=== PATIENT | male | born 1985 | race American Indian/Alaskan Native ===

== ENCOUNTER 2017-12-21 11:58 | Emergency (ER) | payer OTHER ==
[2017-12-21 12:04] VITALS: BMI 25.8
[2017-12-21 12:22] VITALS: RESP 18
--- NOTE | 2017-12-21 12:28 | ED PDOC ---
Arrival/HPI - General Chief Complaint: Abdominal Pain Time Seen by Provider: 12/21/17 12:12 Historian: Patient - History of Present Illness Narrative History of Present Illness (Text): Patient is a 32 year old male with a past medical history of asthma presenting to the emergency room with a complaint of severe abdominal pain. Patient states he has had a right inguinal hernia for approximately 4 months. This morning while lifting a wooden pallet, he felt a sharp abdominal pain and noticed a significant increase in the size of his hernia. He also noticed that his hernia now extended into his scrotum, which it never has before. He went to [facility] and was treated with Toradol and Zofran. No imaging occurred and patient was discharged home. On his way home, he felt worsening of his pain and decided to come to [facility]. He is having sharp right lower abdominal pain that radiates upwards at this time. He denies any nausea at this time, but was treated with Zofran less than 2 hours ago for nausea at [facility]. He has not vomited. He has been experiencing loose stools for the past few months. Has not had a bowel movement or flatus today. Denies fevers, chills, chest pain, shortness of breath. Time/Duration: 1-3 hours Symptom Onset: Sudden Symptom Course: Worsening Quality: Stabbing Past Medical History - Provider Review Nursing Documentation Reviewed: Yes - Infectious Disease Hx of Infectious Diseases: None - Cardiac Hx Cardiac Disorders: No - Pulmonary Hx Respiratory Disorders: Yes Hx Asthma: Yes - Neurological Hx Neurological Disorder: No - HEENT Hx HEENT Disorder: No - Renal Hx Renal Disorder: No - Endocrine/Metabolic Hx Endocrine Disorders: No - Hematological/Oncological Hx Blood Disorders: No - Integumentary Hx Dermatological Disorder: No - Musculoskeletal/Rheumatological Hx Musculoskeletal Disorders: No - Gastrointestinal Hx Gastrointestinal Disorders: No - Genitourinary/Gynecological Hx Genitourinary Disorders: No - Psychiatric Hx Psychophysiologic Disorder: No Hx Substance Use: No - Surgical History Hx Appendectomy: Yes - Suicidal Assessment Feels Threatened In Home Enviroment: No Family/Social History - Physician Review Nursing Documentation Reviewed: Yes Family/Social History: Unknown Family HX Smoking Status: Light Smoker < 10 Cigarettes Daily Hx Alcohol Use: No Hx Substance Use: No Hx Substance Use Treatment: No Allergies/Home Meds Allergies/Adverse Reactions: Allergies shellfish derived Allergy (Verified 12/21/17 12:04) RASH Review of Systems - Physician Review All systems were reviewed & negative as marked: Yes - Review of Systems Constitutional: Normal Respiratory: Normal. absent: SOB Cardiovascular: Normal. absent: Chest Pain, Palpitations Gastrointestinal: Abdominal Pain (RLQ), Diarrhea, Nausea, Other (R inguinal hernia). absent: Constipation, Vomiting Genitourinary Male: Normal. absent: Dysuria, Frequency, Hematuria, Urinary Output Changes Musculoskeletal: Normal Skin: Normal Neurological: Normal. absent: Headache, Dizziness Psychiatric: Normal Physical Exam Vital Signs Reviewed: Yes Vital Signs Temp Pulse Resp BP Pulse Ox 12/21/17 15:14 80 18 130/72 99 12/21/17 12:04 98.6 F 75 18 134/82 98 Temperature: Afebrile Blood Pressure: Normal Pulse: Regular Respiratory Rate: Normal Appearance: Positive for: Well-Appearing, Non-Toxic, Comfortable Pain Distress: None Mental Status: Positive for: Alert and Oriented X 3 - Systems Exam Head: Present: Atraumatic, Normocephalic Extroacular Muscles: Present: EOMI Conjunctiva: Present: Normal Mouth: Present: Moist Mucous Membranes Respiratory/Chest: Present: Clear to Auscultation, Good Air Exchange. No: Respiratory Distress, Accessory Muscle Use Cardiovascular: Present: Regular Rate and Rhythm, Normal S1, S2. No: Murmurs Abdomen: No: Tenderness, Distention, Peritoneal Signs Genitourinary Male: Present: Hernias (R inguinal hernia extending into scrotum. Very tender to palpation. Reduced only after use of ice. ). No: Penile Discharge, Testicle Tenderness, Penile Swelling, Testicle Swelling Back: Present: Normal Inspection Upper Extremity: Present: Normal Inspection, NORMAL PULSES. No: Cyanosis, Edema Lower Extremity: Present: Normal Inspection, NORMAL PULSES. No: Edema Neurological: Present: GCS=15, CN II-XII Intact, Speech Normal Skin: Present: Warm, Dry, Normal Color. No: Rashes Psychiatric: Present: Alert, Oriented x 3, Normal Insight, Normal Concentration Medical Decision Making ED Course and Treatment: 12/21/17 12:30 R inguinal hernia with herniation protruding into scrotum. Very tender to palpation. Difficult to reduce. Added ice pack and hernia reduced within 5 minutes. Labs, abd/pelvis CT Tylenol and flexeril for pain - patient refuses any use of narcotics due to previous drug use (cocaine) 12/21/17 13:00 Patient evaluated with surgical lead Dr. Francis. Recommended switching abd/pelvis CT to include IV and PO contrast. Changed order. 12/21/17 14:14 Labs normal. Patient's pain is much improved. He is tolerating oral contrast. 12/21/17 16:51 CT scan is negative. Discussed case with surgical lead Penny. Tolerating food and water. Will discharge home with instructions to follow up with Dr. Fierro for evaluation of hernia repair. Patient states that he understands and will call to follow up this week. - Lab Interpretations Lab Results: 12/21/17 12:30 12/21/17 12:30 Lab Results 12/21/17 13:45: Blood Type Confirm A POSITIVE 12/21/17 13:26: Blood Type A POSITIVE, Antibody Screen Negative, BBK History Checked No verified bt 12/21/17 12:30: Sodium 142, Potassium 4.0, Chloride 106, Carbon Dioxide 28, Anion Gap 12, BUN 16, Creatinine 1.0, Est GFR ( Amer) > 60, Est GFR (Non- Af Amer) > 60, Random Glucose 90, Calcium 8.7, Total Bilirubin 0.7, AST 22, ALT 27, Alkaline Phosphatase 66, Total Protein 6.9, Albumin 4.1, Globulin 2.8, Albumin/Globulin Ratio 1.4 12/21/17 12:30: PT 11.8, INR 1.03, APTT 26.2 12/21/17 12:30: WBC 8.1, RBC 4.74, Hgb 14.1, Hct 42.0, MCV 88.6, MCH 29.7, MCHC 33.6, RDW 12.7, Plt Count 201, MPV 11.1 H, Gran % 46.8 L, Lymph % (Auto) 43.4 H , [place] % (Auto) 6.7 H, Eos % (Auto) 2.4, Baso % (Auto) 0.7, Gran # 3.77, Lymph # (Auto) 3.5 H, [place] # (Auto) 0.5, Eos # (Auto) 0.2, Baso # (Auto) 0.06 I have reviewed the lab results: Yes - RAD Interpretation Narrative RAD Interpretations (Text): 12/21/17 16:18 Accession No. : [id number] Patient Name / ID : KEVEN HILLS / [id number] Exam Date : 12/21/2017 15:36:20 ( Approved ) Study Comment : Sex / Age : M / 32Y Creator : Jovana Burger MD Dictator : Jovana Burger MD Cotton Factor : Toll Operator : Jovana Burger MD Approver2 : Report Date : 12/21/2017 16:02:56 My Comment : Date of service: 12/21/2017 PROCEDURE: CT Abdomen and Pelvis with contrast HISTORY: R inguinal hernia COMPARISON: None. TECHNIQUE: CT scan of the abdomen and pelvis was performed after administration of intravenous contrast. Oral contrast was administered. Coronal and sagittal reformatted images were obtained. Contrast dose: 150 mL Visipaque 320 Radiation dose: Total exam DLP = 464.54 mGy-cm. This CT exam was performed using one or more of the following dose reduction techniques: Automated exposure control, adjustment of the mA and/or kV according to patient size, and/or use of iterative reconstruction technique. FINDINGS: LOWER THORAX: The visualized lungs are clear. LIVER: Mild hepatomegaly and diffuse fatty liver. No gross lesion or ductal dilatation. GALLBLADDER AND BILE DUCTS: The gallbladder is contracted. PANCREAS: Normal in size with homogeneous enhancement. No gross lesion or ductal dilatation. SPLEEN: Normal in size and appearance. ADRENALS: No discrete nodule. KIDNEYS AND URETERS: Normal in size with homogeneous enhancement. No hydronephrosis. No solid mass. VASCULATURE: No aortic aneurysm. BOWEL: The small bowel loops are normal in caliber. The colon is unremarkable. No bowel dilatation or wall thickening. APPENDIX: Surgically absent. PERITONEUM: No free fluid. No free air. LYMPH NODES: No enlarged lymph nodes. BLADDER: Well distended and normal in appearance. REPRODUCTIVE: Unremarkable. BONES: No acute fracture. OTHER FINDINGS: There is a small fat containing right inguinal hernia. IMPRESSION: No acute abdominal or pelvic abnormality. Small fat containing right inguinal hernia. Radiology Orders: 12/21/17 13:11 ABD PELVIS PO & IV CONTRAST [CT] Stat Rotary Cutter Operator: Radiologist - Medication Orders Current Medication Orders: Discontinued Medications Acetaminophen (Tylenol 325mg Tab) 650 mg PO STAT STA Stop: 12/21/17 12:42 Last Admin: 12/21/17 12:55 Dose: 650 mg MAR Pain/Vitals Document 12/21/17 12:55 HI (Rec: 12/21/17 12:57 HI [id number]) Pain Reassessment Is This A Pain ReAssessment? No Location Pain Location Body Site groin Re-Assess: MAR Pain/Vitals Document 12/21/17 13:55 HI (Rec: 12/21/17 14:00 HI [id number]) Pain Reassessment Is This A Pain ReAssessment? Yes Sleep Is patient sleeping during reassessment? No Presence of Pain Presence of Pain No Cyclobenzaprine HCl (Flexeril) 5 mg PO STAT STA Stop: 12/21/17 12:42 Last Admin: 12/21/17 12:55 Dose: 5 mg Disposition/Present on Arrival - Present on Arrival Any Indicators Present on Arrival: No History of DVT/PE: No History of Uncontrolled Diabetes: No Urinary Catheter: No History of Decub. Ulcer: No History Surgical Site Infection Following: None - Disposition Have Diagnosis and Disposition been Completed?: Yes Diagnosis: Right inguinal hernia Disposition: HOME/ ROUTINE Disposition Time: 16:55 Patient Plan: Discharge Patient Problems: Current Active Problems Problem Status Onset Right inguinal hernia Acute Condition: FAIR Discharge Instructions (ExitCare): Groin Hernia (DC) Additional Instructions: Patient is to be discharged home with instructions to follow up with Dr. Fierro, General Surgery, for evaluation of hernia repair. Patient given Acetaminophen and Flexeril for pain control. If patient experiences any new or worsening symptoms, please go directly to the nearest emergency department. Prescriptions: Acetaminophen [Non-Aspirin Pain Relief] 325 mg PO Q8H PRN #21 tablet PRN Reason: Pain, Moderate (4-7) Cyclobenzaprine [Flexeril] 5 mg PO Q8H PRN #21 tab PRN Reason: Pain, Moderate (4-7) Referrals: PCP,NO [Primary Care Provider] - Follow up with primary Andreas Fierro MD [Medical Doctor] - Follow up with primary Forms: [employer] (American), WORK NOTE
[2017-12-21 13:04] LABS: BASO # 0.06 K/mm3 (0.0-2.0); BASO % 0.7 % (0.0-3.0); EOS # 0.2 (0.0-0.7); EOS % 2.4 % (1.5-5.0); GRAN # 3.77 (1.4-6.5); GRAN % 46.8 % (50.0-68.0); HEMOGLOBIN 14.1 g/dL (14.0-18.0); LYMPH # 3.5 (1.2-3.4); LYMPH % 43.4 % (22.0-35.0); MEAN CELL VOLUME 88.6 fl (80.0-105.0); MEAN CORPUSCULAR HEMOGLOBIN 29.7 pg (25.0-35.0); MEAN CORPUSCULAR HGB CONC 33.6 g/dl (31.0-37.0); MEAN PLATELET VOLUME 11.1 fl (7.0-11.0); MONO # 0.5 (0.1-0.6); MONO % 6.7 % (1.0-6.0); RBC 4.74 10^6/uL (3.5-6.1); RED CELL DISTRIBUTION WIDTH 12.7 % (11.5-14.5); WHITE BLOOD COUNT 8.1 10^3/ul (4.5-11.0)
[2017-12-21 13:07] LABS: INR 1.03; PROTHROMBIN TIME 11.8 SECONDS (9.4-12.5)
[2017-12-21 13:10] LABS: PARTIAL THROMBOPLASTIN TIME 26.2 Seconds (25.1-36.5)
[2017-12-21 13:13] LABS: ALB/GLOB RATIO 1.4 (1.1-1.8); ALBUMIN 4.1 g/dL (3.0-4.8); ALT/SGPT 27 U/L (7-56); AST/SGOT 22 U/L (17-59); BLOOD UREA NITROGEN 16 mg/dL (7-21); CALCIUM 8.7 mg/dL (8.4-10.5); GFR AFRICAN-AMERICAN > 60; GFR NON-AFRICAN AMERICAN > 60
[2017-12-21] MEDS ORDERED: Iohexol 240 (50 ml) ONE (13:17)
--- NOTE | 2017-12-21 13:21 | CP.PCM.CON ---
History of Present Illness - History of Present Illness History of Present Illness: General Surgery Consult Note for Dr. Fierro Reason for Consult: R inguinal Hernia 32 M with PMH of asthma presents to [facility] for complaint of right inguinal hernia. Patient was seen and evaluated in the ED. Patient states that he has had this hernial since June. He reports gradual onset and states that it has been getting progressively worse. This morning, patient noticed that both pain and size increased. Patient left work and decided to be seen at [facility]. Patient was given pain medication and discharged for outpatient follow up. While patient was heading home from [facility] on the light rail, the pain had increased again. Patient immediately got off the light rail and came to [facility] ED. Patient states that initial event happened at work. Patient continued to work and exercise since June despite the presence of the hernia. Patient rate pain as severe. He describes it as constant and sharp located in groin/lower abdomen without radiation. Patient also admits to mild mid epigastric pain. He reports associated nausea. He states that he has had non-bloody diarrhea for last 1-2 months. Denies fever/chills, chest pain, palpiations, vomiting, hematochezia, melena, hematemesis, skin changes. Hernia was reduced by resident in ED. Patient has persistent pain despite reduction. 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 absent: Constipation, Fecal Incontinence, Heartburn, Hematemesis, Hematochezia, Vomiting - Genitourinary Genitourinary: absent: Change in Urinary Stream, Difficulty Urinating, Dysuria - Musculoskeletal Musculoskeletal: absent: Arthralgias, Numbness, Tingling - Integumentary Integumentary: absent: Rash, Wounds, Jaundice - Neurological Neurological: absent: Numbness, Syncope, Tingling, Vertigo, Weakness - Psychiatric Psychiatric: absent: Anxiety, Depression - Endocrine Endocrine: absent: Fatigue, Palpitations, Polydipsia, Polyphagia, Polyuria - Hematologic/Lymphatic Hematologic: absent: Easy Bleeding, Easy Bruising, Lymphadenopathy Past Patient History - Infectious Disease Hx of Infectious Diseases: None - Past Social History Smoking Status: Light Smoker < 10 Cigarettes Daily - CARDIAC Hx Cardiac Disorders: No - PULMONARY Hx Respiratory Disorders: Yes Hx Asthma: Yes - NEUROLOGICAL Hx Neurological Disorder: No - HEENT Hx HEENT Problems: No - RENAL Hx Chronic Kidney Disease: No - ENDOCRINE/METABOLIC Hx Endocrine Disorders: No - HEMATOLOGICAL/ONCOLOGICAL Hx Blood Disorders: No - INTEGUMENTARY Hx Dermatological Problems: No - MUSCULOSKELETAL/RHEUMATOLOGICAL Hx Musculoskeletal Disorders: No - GASTROINTESTINAL Hx Gastrointestinal Disorders: No - GENITOURINARY/GYNECOLOGICAL Hx Genitourinary Disorders: No - PSYCHIATRIC Hx Psychophysiologic Disorder: No Hx Substance Use: No - SURGICAL HISTORY Hx Appendectomy: Yes Meds Home Medications: Home Medication List Medication Instructions Recorded Confirmed Type Acetaminophen [Non-Aspirin Pain 325 mg PO Q8H PRN #21 tablet 12/21/17 Rx Relief] Cyclobenzaprine [Flexeril] 5 mg PO Q8H PRN #21 tab 12/21/17 Rx Allergies/Adverse Reactions: Allergies Allergy/AdvReac Type Severity Reaction Status Date / Time shellfish derived Allergy RASH Verified 12/21/17 12:04 Physical Exam - Constitutional Appears: Well, Non-toxic, No Acute Distress - Head Exam Head Exam: ATRAUMATIC, NORMOCEPHALIC - Eye Exam Eye Exam: EOMI, Normal appearance Pupil Exam: PERRL - ENT Exam ENT Exam: Mucous Membranes Moist - Respiratory Exam Respiratory Exam: NORMAL BREATHING PATTERN - Cardiovascular Exam Cardiovascular Exam: REGULAR RHYTHM - GI/Abdominal Exam GI & Abdominal Exam: Hernia (r inguinal hernia), Normal Bowel Sounds, Soft, Tenderness (r groin, suprapubic). absent: Distended, Guarding, Rebound Additional comments: Right inguinal hernia reduced in ED, patient has palpable defect in inguinal canal, TTP in right groin and suprapubic abdomen, small ecchymosis above inguinal canal on right - Extremities Exam Extremities exam: Positive for: normal capillary refill. Negative for: calf tenderness, pedal pulses present - Back Exam Back exam: absent: CVA tenderness (L), CVA tenderness (R) - Neurological Exam Neurological exam: Alert, CN II-XII Intact, Normal Gait, Oriented x3 - Psychiatric Exam Psychiatric exam: Normal Affect, Normal Mood - Skin Skin Exam: Dry, Intact, Warm Results - Vital Signs Recent Vital Signs: Last Vital Signs Temp 98.6 F 12/21/17 12:04 Pulse 75 12/21/17 12:04 Resp 18 12/21/17 12:04 BP 134/82 12/21/17 12:04 Pulse Ox 98 12/21/17 12:04 - Labs Result Diagrams: 12/21/17 12:30 12/21/17 12:30 Labs: Laboratory Results - last 24 hr 12/21/17 12/21/17 12/21/17 12:30 12:30 12:30 WBC 8.1 RBC 4.74 Hgb 14.1 Hct 42.0 MCV 88.6 MCH 29.7 MCHC 33.6 RDW 12.7 Plt Count 201 MPV 11.1 H Gran % 46.8 L Lymph % (Auto) 43.4 H [place] % (Auto) 6.7 H Eos % (Auto) 2.4 Baso % (Auto) 0.7 Gran # 3.77 Lymph # (Auto) 3.5 H [place] # (Auto) 0.5 Eos # (Auto) 0.2 Baso # (Auto) 0.06 PT 11.8 INR 1.03 APTT 26.2 Sodium 142 Potassium 4.0 Chloride 106 Carbon Dioxide 28 Anion Gap 12 BUN 16 Creatinine 1.0 Est GFR ( Amer) > 60 Est GFR (Non-Af Amer) > 60 Random Glucose 90 Calcium 8.7 Total Bilirubin 0.7 AST 22 ALT 27 Alkaline Phosphatase 66 Total Protein 6.9 Albumin 4.1 Globulin 2.8 Albumin/Globulin Ratio 1.4 Assessment & Plan - Assessment and Plan (Free Text) Assessment: 32 M presents with right inguinal hernia Plan: -CT Abd/Pelvis with PO & IV contrast unremarkable -Labs without abnormalities -Hernia reduced and pain improved -Patient may be discharged and follow up as outpatient for elective repair -Discussed with Dr. Irwin Francis PGY2 - Date & Time Date: 12/21/17 Time: 12:30
[2017-12-21 15:19] VITALS: O2SAT 99
[2017-12-21] MEDS ORDERED: Iodixanol 320 mg/ml 150 ml Bottle IV ONE (15:31)
--- NOTE | 2017-12-21 16:04 | CT ---
Date of service: 12/21/2017 PROCEDURE: CT Abdomen and Pelvis with contrast HISTORY: R inguinal hernia COMPARISON: None. TECHNIQUE: CT scan of the abdomen and pelvis was performed after administration of intravenous contrast. Oral contrast was administered. Coronal and sagittal reformatted images were obtained. Contrast dose: 150 mL Visipaque 320 Radiation dose: Total exam DLP = 464.54 mGy-cm. This CT exam was performed using one or more of the following dose reduction techniques: Automated exposure control, adjustment of the mA and/or kV according to patient size, and/or use of iterative reconstruction technique. FINDINGS: LOWER THORAX: The visualized lungs are clear. LIVER: Mild hepatomegaly and diffuse fatty liver. No gross lesion or ductal dilatation. GALLBLADDER AND BILE DUCTS: The gallbladder is contracted. PANCREAS: Normal in size with homogeneous enhancement. No gross lesion or ductal dilatation. SPLEEN: Normal in size and appearance. ADRENALS: No discrete nodule. KIDNEYS AND URETERS: Normal in size with homogeneous enhancement. No hydronephrosis. No solid mass. VASCULATURE: No aortic aneurysm. BOWEL: The small bowel loops are normal in caliber. The colon is unremarkable. No bowel dilatation or wall thickening. APPENDIX: Surgically absent. PERITONEUM: No free fluid. No free air. LYMPH NODES: No enlarged lymph nodes. BLADDER: Well distended and normal in appearance. REPRODUCTIVE: Unremarkable. BONES: No acute fracture. OTHER FINDINGS: There is a small fat containing right inguinal hernia. IMPRESSION: No acute abdominal or pelvic abnormality. Small fat containing right inguinal hernia.
[2017-12-21 18:43] VITALS: BP 132/86; PULSE 72; TEMP 98.5
== END 2017-12-21 17:00 | disposition home or self-care (01) ==
LOC: ED 11:58
DX: K40.90 Unilateral inguinal hernia, without obstruction or gangrene, not specified as recurrent (principal); F17.210 Nicotine dependence, cigarettes, uncomplicated
CPT/HCPCS: 74177; 80053; 85025; 85610; 85730; 86850; 86900; 99284; Q9966; Q9967

== ENCOUNTER 2017-12-22 11:54 | Day surgery (SDC) | payer OTHER ==
[2017-12-22 11:55] VITALS: BMI 25.8
--- NOTE | 2017-12-22 12:45 | ED PDOC ---
Arrival/HPI - General Chief Complaint: Groin Pain Time Seen by Provider: 12/22/17 12:01 Historian: Patient - History of Present Illness Narrative History of Present Illness (Text): 12/22/17 12:37 32 yr old male w/ hx of asthma, R inguinal hernia, previous cocaine use p/w R groin pain. 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 He notes baseball sized enlargement at that time, with pain radiating into his abdomen. Pt went to [facility] then to [facility] and was dx w/ incarcerated hernia and reduced. Pt was seen by Dr. King's resident and was d/c w/ followup and pain meds. Pt notes that today he went to pass a BM, and after standing up had R groin enlargement and pain, softball size, worse than yesterday. He notes pain feels exactly alike previous hernia pain. He denies any vomiting. He denies any nausea. He denies taking any pain meds for the pain. No dysuria, urgency or frequency. No recent sexual activity. No redness, to R groin. No fever. No other complaints. Time/Duration: 4-6 hours Symptom Onset: Gradual Symptom Course: Unchanged Quality: Aching Severity Level: 5 Activities at Onset: Rest Context: Sitting, Standing Past Medical History - Provider Review Nursing Documentation Reviewed: Yes - Patient History Narrative Patient History: Asthma, previous admission and intubation as a child. No current meds for asthma or admission in adulthood - Infectious Disease Hx of Infectious Diseases: None - Tetanus Immunization Tetanus Immunization: Unknown - Cardiac Hx Cardiac Disorders: No - Pulmonary Hx Respiratory Disorders: Yes Hx Asthma: Yes - Neurological Hx Neurological Disorder: No - HEENT Hx HEENT Disorder: No - Renal Hx Renal Disorder: No - Endocrine/Metabolic Hx Endocrine Disorders: No - Hematological/Oncological Hx Blood Disorders: No - Integumentary Hx Dermatological Disorder: No - Musculoskeletal/Rheumatological Hx Musculoskeletal Disorders: No - Gastrointestinal Hx Gastrointestinal Disorders: No - Genitourinary/Gynecological Hx Genitourinary Disorders: No - Psychiatric Hx Psychophysiologic Disorder: No Hx Substance Use: No - Past Surgical History Past Surgical History: No Previous - Surgical History Hx Appendectomy: Yes - Anesthesia Hx Anesthesia: Yes Hx Anesthesia Reactions: No Hx Malignant Hyperthermia: No - Suicidal Assessment Feels Threatened In Home Enviroment: No Family/Social History - Physician Review Nursing Documentation Reviewed: Yes Family/Social History: No Known Family HX Smoking Status: Current Some Days Smoker Hx Alcohol Use: No Hx Substance Use: Yes (cocaine, now clean) Hx Substance Use Treatment: No Allergies/Home Meds Allergies/Adverse Reactions: Allergies shellfish derived Allergy (Verified 12/22/17 12:26) RASH Home Medications: Home Meds Medication Instructions Recorded Confirmed No Known Home Med 12/22/17 12/22/17 Review of Systems - Review of Systems Constitutional: Normal Eyes: Normal ENT: Normal Respiratory: Normal Cardiovascular: Normal Gastrointestinal: Abdominal Pain (R groin pain) Genitourinary Male: Normal Musculoskeletal: Normal Skin: Normal Neurological: Normal Endocrine: Normal Hemo/Lymphatic: Normal Psychiatric: Normal Physical Exam Vital Signs Temp Pulse Resp BP Pulse Ox 12/22/17 12:16 99.1 F 78 18 134/85 98 Temperature: Afebrile Blood Pressure: Normal Pulse: Regular Respiratory Rate: Normal Appearance: Positive for: Well-Appearing, Non-Toxic, Comfortable Pain Distress: None Mental Status: Positive for: Alert and Oriented X 3 - Systems Exam Head: Present: Atraumatic, Normocephalic Pupils: Present: PERRL Extroacular Muscles: Present: EOMI Conjunctiva: Present: Normal Mouth: Present: Moist Mucous Membranes Neck: Present: Normal Range of Motion Respiratory/Chest: Present: Clear to Auscultation, Good Air Exchange. No: Respiratory Distress, Accessory Muscle Use Cardiovascular: Present: Regular Rate and Rhythm, Normal S1, S2. No: Murmurs Abdomen: No: Tenderness, Distention, Peritoneal Signs Genitourinary Male: Present: Testicle Swelling (R groin, Inguinal hernia, softball sized, compressible, non-strangulated. No discoloration or erythema. ) . No: Penile Swelling, Masses, Erythema, Hernias Back: Present: Normal Inspection Upper Extremity: Present: Normal Inspection. No: Cyanosis, Edema Lower Extremity: Present: Normal Inspection. No: Edema Neurological: Present: GCS=15, CN II-XII Intact, Speech Normal Skin: Present: Warm, Dry, Normal Color. No: Rashes Psychiatric: Present: Alert, Oriented x 3, Normal Insight, Normal Concentration Medical Decision Making ED Course and Treatment: 12/22/17 12:30 R inguinal hernia. Non-strangulated. Incarcerated. Larger than yesterday. Pt states he does not want any narcotics 2/2 previous cocaine usage. Will page fixed income trading vice president on for Dr. Kang. 12:59 Seen by Business Continuity Global Director on for Dr. Kang: He will contact Surgical attd. 1400 vice president medical affairs attempted reduction of hernia- will need to go to OR per resident. To admit to Dr. Talamantes. Admitted. 12/22/17 14:17 12/22/17 14:19 - Lab Interpretations Lab Results: 12/22/17 12:50 12/22/17 12:50 Lab Results 12/22/17 13:15: Blood Type Pending, Antibody Screen Pending, BBK History Checked Patient has bt 12/22/17 12:53: pO2 139 H, VBG pH 7.42, VBG pCO2 43.0, VBG HCO3 27.9, VBG Total CO2 29.2 H, VBG O2 Sat (Calc) 99.3 H, VBG Base Excess 2.9 H, VBG Potassium 4.2, Glucose 90, Lactate 1.4, FiO2 21.0, Sodium 141.0, Chloride 106.0, Venous Blood Potassium 4.2 12/22/17 12:50: Sodium 142, Potassium 4.3, Chloride 107, Carbon Dioxide 25, Anion Gap 14, BUN 15, Creatinine 1.0, Est GFR ( Amer) > 60, Est GFR (Non- Af Amer) > 60, Random Glucose 93, Calcium 9.0, Total Bilirubin 0.6, AST 29, ALT 28, Alkaline Phosphatase 70, Total Protein 7.9, Albumin 4.5, Globulin 3.4, Albumin/Globulin Ratio 1.3 12/22/17 12:50: PT 11.0, INR 0.97, APTT 26.2 12/22/17 12:50: WBC 7.7, RBC 4.96, Hgb 15.1, Hct 43.5, MCV 87.7, MCH 30.4, MCHC 34.7, RDW 12.7, Plt Count 212, MPV 10.9, Gran % 51.0, Lymph % (Auto) 39.3 H, [place] % (Auto) 5.5, Eos % (Auto) 3.4, Baso % (Auto) 0.8, Gran # 3.92, Lymph # ( Auto) 3.0, [place] # (Auto) 0.4, Eos # (Auto) 0.3, Baso # (Auto) 0.06 - Medication Orders Current Medication Orders: Discontinued Medications Acetaminophen (Tylenol 325mg Tab) 650 mg PO STAT STA Stop: 12/22/17 12:30 Last Admin: 12/22/17 12:40 Dose: 650 mg MAR Pain/Vitals Document 12/22/17 12:40 L[facility] (Rec: 12/22/17 12:41 LM [id number]) Pain Reassessment Is This A Pain ReAssessment? No Sleep Is patient sleeping during reassessment? No Presence of Pain Presence of Pain Yes Pain Scale Used Pain Scale Used Numeric Location Description Constant Intensity 6 Scale Used Numeric Cyclobenzaprine HCl (Flexeril) 5 mg PO STAT STA Stop: 12/22/17 12:30 Last Admin: 12/22/17 12:40 Dose: 5 mg Ibuprofen (Motrin Tab) 600 mg PO STAT STA Stop: 12/22/17 13:41 Last Admin: 12/22/17 13:53 Dose: 600 mg MAR Pain/Vitals Document 12/22/17 13:53 [facility] (Rec: 12/22/17 13:[id number]) Pain Reassessment Is This A Pain ReAssessment? Yes Sleep Is patient sleeping during reassessment? No Presence of Pain Presence of Pain Yes Pain Scale Used Pain Scale Used Numeric Location Intensity 6 Scale Used Numeric Disposition/Present on Arrival - Present on Arrival Any Indicators Present on Arrival: No History of DVT/PE: No History of Uncontrolled Diabetes: No Urinary Catheter: No History of Decub. Ulcer: No History Surgical Site Infection Following: None - Disposition Have Diagnosis and Disposition been Completed?: Yes Diagnosis: Right inguinal hernia Disposition: HOSPITALIZED Disposition Time: 14:20 Patient Problems: Current Active Problems Problem Status Onset Right inguinal hernia Acute Condition: GOOD Forms: [employer] (Pashto)
[2017-12-22 13:02] LABS: HEMOGLOBIN 15.1 g/dL (14.0-18.0); MEAN CELL VOLUME 87.7 fl (80.0-105.0); MEAN CORPUSCULAR HEMOGLOBIN 30.4 pg (25.0-35.0); RBC 4.96 10^6/uL (3.5-6.1); WHITE BLOOD COUNT 7.7 10^3/ul (4.5-11.0)
[2017-12-22 13:03] LABS: BASO # 0.06 K/mm3 (0.0-2.0); BASO % 0.8 % (0.0-3.0); EOS # 0.3 (0.0-0.7); EOS % 3.4 % (1.5-5.0); GRAN # 3.92 (1.4-6.5); LYMPH % 39.3 % (22.0-35.0); MEAN CORPUSCULAR HGB CONC 34.7 g/dl (31.0-37.0); MEAN PLATELET VOLUME 10.9 fl (7.0-11.0); MONO # 0.4 (0.1-0.6); MONO % 5.5 % (1.0-6.0); RED CELL DISTRIBUTION WIDTH 12.7 % (11.5-14.5)
[2017-12-22 13:19] LABS: VENOUS BLOOD GAS BASE EXCESS 2.9 mmol/L (0.0-2.0); VENOUS BLOOD GAS PO2 139 mm/Hg (30-55); VENOUS BLOOD PH 7.42 (7.32-7.43)
[2017-12-22 13:20] LABS: INR 0.97; PARTIAL THROMBOPLASTIN TIME 26.2 Seconds (25.1-36.5)
[2017-12-22 13:43] LABS: BLOOD UREA NITROGEN 15 mg/dL (7-21); GFR AFRICAN-AMERICAN > 60; GFR NON-AFRICAN AMERICAN > 60
[2017-12-22 13:44] LABS: ALB/GLOB RATIO 1.3 (1.1-1.8); ALBUMIN 4.5 g/dL (3.0-4.8); ALT/SGPT 28 U/L (7-56); AST/SGOT 29 U/L (17-59)
--- NOTE | 2017-12-22 14:16 | CP.PCM.CON ---
Past Patient History - Infectious Disease Hx of Infectious Diseases: None - Tetanus Immunizations Tetanus Immunization: Unknown - Past Social History Smoking Status: Current Some Days Smoker - CARDIAC Hx Cardiac Disorders: No - PULMONARY Hx Respiratory Disorders: Yes Hx Asthma: Yes - NEUROLOGICAL Hx Neurological Disorder: No - HEENT Hx HEENT Problems: No - RENAL Hx Chronic Kidney Disease: No - ENDOCRINE/METABOLIC Hx Endocrine Disorders: No - HEMATOLOGICAL/ONCOLOGICAL Hx Blood Disorders: No - INTEGUMENTARY Hx Dermatological Problems: No - MUSCULOSKELETAL/RHEUMATOLOGICAL Hx Musculoskeletal Disorders: No - GASTROINTESTINAL Hx Gastrointestinal Disorders: No - GENITOURINARY/GYNECOLOGICAL Hx Genitourinary Disorders: No - PSYCHIATRIC Hx Psychophysiologic Disorder: No Hx Substance Use: Yes (cocaine, now clean) - SURGICAL HISTORY Hx Appendectomy: Yes - ANESTHESIA Hx Anesthesia: Yes Hx Anesthesia Reactions: No Hx Malignant Hyperthermia: No Meds Allergies/Adverse Reactions: Allergies Allergy/AdvReac Type Severity Reaction Status Date / Time shellfish derived Allergy RASH Verified 12/22/17 12:26 Results - Vital Signs Recent Vital Signs: Last Vital Signs Temp 99.1 F 12/22/17 12:16 Pulse 78 12/22/17 12:16 Resp 18 12/22/17 12:16 BP 134/85 12/22/17 12:16 Pulse Ox 98 12/22/17 12:16 - Labs Result Diagrams: 12/22/17 12:50 12/22/17 12:50 Labs: Laboratory Results - last 24 hr 12/22/17 12/22/17 12/22/17 12:50 12:50 12:50 WBC 7.7 RBC 4.96 Hgb 15.1 Hct 43.5 MCV 87.7 MCH 30.4 MCHC 34.7 RDW 12.7 Plt Count 212 MPV 10.9 Gran % 51.0 Lymph % (Auto) 39.3 H [place] % (Auto) 5.5 Eos % (Auto) 3.4 Baso % (Auto) 0.8 Gran # 3.92 Lymph # (Auto) 3.0 [place] # (Auto) 0.4 Eos # (Auto) 0.3 Baso # (Auto) 0.06 PT 11.0 INR 0.97 APTT 26.2 pO2 VBG pH VBG pCO2 VBG HCO3 VBG Total CO2 VBG O2 Sat (Calc) VBG Base Excess VBG Potassium Glucose Lactate FiO2 Sodium 142 Potassium 4.3 Chloride 107 Carbon Dioxide 25 Anion Gap 14 BUN 15 Creatinine 1.0 Est GFR ( Amer) > 60 Est GFR (Non-Af Amer) > 60 Random Glucose 93 Calcium 9.0 Total Bilirubin 0.6 AST 29 ALT 28 Alkaline Phosphatase 70 Total Protein 7.9 Albumin 4.5 Globulin 3.4 Albumin/Globulin Ratio 1.3 Venous Blood Potassium BBK History Checked 12/22/17 12/22/17 12:53 13:15 WBC RBC Hgb Hct MCV MCH MCHC RDW Plt Count MPV Gran % Lymph % (Auto) [place] % (Auto) Eos % (Auto) Baso % (Auto) Gran # Lymph # (Auto) [place] # (Auto) Eos # (Auto) Baso # (Auto) PT INR APTT pO2 139 H VBG pH 7.42 VBG pCO2 43.0 VBG HCO3 27.9 VBG Total CO2 29.2 H VBG O2 Sat (Calc) 99.3 H VBG Base Excess 2.9 H VBG Potassium 4.2 Glucose 90 Lactate 1.4 FiO2 21.0 Sodium 141.0 Potassium Chloride 106.0 Carbon Dioxide Anion Gap BUN Creatinine Est GFR ( Amer) Est GFR (Non-Af Amer) Random Glucose Calcium Total Bilirubin AST ALT Alkaline Phosphatase Total Protein Albumin Globulin Albumin/Globulin Ratio Venous Blood Potassium 4.2 BBK History Checked Patient has bt
[2017-12-22] MEDS ORDERED: HYDROmorphone 0.5 mg/0.5 ml ISec IVP PRN ×2 (14:28→17:56)
--- NOTE | 2017-12-22 14:29 | CP.PCM.HP ---
History of Present Illness - History of Present Illness History of Present Illness: General Surgery Consult Note for Dr. Talamantes Reason for consult: incarcerated Right inguinal hernia 32 M with PMH of asthma returned to [facility] for a complaint of right inguinal hernia. Patient was seen and evaluated in the ED. Yesterday, patient came to ED for right inguinal hernia as well. CT abd/pelvis was performed and was unremarkable. Subsequently, the hernia was reduced and the patient was sent home with follow up and pain medications. Patient states that he has had this hernia since June. This afternoon, patient was at [employer] when pain and size of hernia was increased. He noticed that the hernia was non-reducible and decided to return to ED. Patient rates pain as severe. He describes it as constant and sharp located in right groin without radiation. He reports associated nausea but no vomiting. Movement aggravates pain while nothing alleviates it. He reports no flatus or BM today. He last ate pancakes at 9:00. Denies fever/chills, chest pain, palpiations, vomiting, hematochezia, melena, hematemesis, skin changes. Hernia was non-reducible in ED and the pain persisted. 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 [place] Present on Admission - Present on Admission Any Indicators Present on Admission: No Review of Systems - Constitutional Constitutional: absent: Anorexia, Chills, Fatigue, Fever, Frequent Falls, Headache - EENT Eyes: absent: Blurred Vision, Change in Vision Ears: absent: Ear Discharge, Ear Pain Nose/Mouth/Throat: absent: Nasal Congestion, Nasal Discharge - Cardiovascular Cardiovascular: absent: Chest Pain, Chest Pain at Rest, Diaphoresis, Dyspnea, Lightheadedness - Respiratory Respiratory: absent: Cough, Dyspnea, Dyspnea on Exertion - Gastrointestinal Gastrointestinal: Abdominal Pain, Nausea. absent: Change in Bowel Habits, Constipation, Diarrhea, Early Satiety, Hematemesis, Hematochezia, Loose Stools, Melena, Vomiting - Genitourinary Genitourinary: absent: Change in Urinary Stream, Difficulty Urinating, Dysuria, Flank Pain, Hematuria - Musculoskeletal Musculoskeletal: absent: Muscle Weakness - Integumentary Integumentary: absent: New Lesions, Rash, Wounds - Neurological Neurological: absent: Abnormal Hearing, Abnormal Movements, Abnormal Speech, Behavioral Changes, Confusion, Headaches, Memory Loss - Psychiatric Psychiatric: absent: Anxiety, Confusion, Depression - Endocrine Endocrine: absent: Polydipsia, Polyphagia, Polyuria - Hematologic/Lymphatic Hematologic: absent: Easy Bleeding, Easy Bruising, Lymphadenopathy Past Patient History - Infectious Disease Hx of Infectious Diseases: None - Tetanus Immunizations Tetanus Immunization: Unknown - Past Medical History & Family History Past Medical History?: Yes - Past Social History Smoking Status: Current Some Days Smoker (light smoker < 10 Cigarettes Daily) - CARDIAC Hx Cardiac Disorders: No - PULMONARY Hx Respiratory Disorders: Yes Hx Asthma: Yes - NEUROLOGICAL Hx Neurological Disorder: No - HEENT Hx HEENT Problems: No - RENAL Hx Chronic Kidney Disease: No - ENDOCRINE/METABOLIC Hx Endocrine Disorders: No - HEMATOLOGICAL/ONCOLOGICAL Hx Blood Disorders: No - INTEGUMENTARY Hx Dermatological Problems: No - MUSCULOSKELETAL/RHEUMATOLOGICAL Hx Musculoskeletal Disorders: No - GASTROINTESTINAL Hx Gastrointestinal Disorders: No - GENITOURINARY/GYNECOLOGICAL Hx Genitourinary Disorders: No - PSYCHIATRIC Hx Psychophysiologic Disorder: No Hx Substance Use: Yes (cocaine, now clean) - SURGICAL HISTORY Hx Appendectomy: Yes - ANESTHESIA Hx Anesthesia: Yes Hx Anesthesia Reactions: No Hx Malignant Hyperthermia: No Meds Allergies/Adverse Reactions: Allergies Allergy/AdvReac Type Severity Reaction Status Date / Time shellfish derived Allergy RASH Verified 12/22/17 12:26 Physical Exam - Constitutional Appears: Well, Non-toxic, In Acute Distress (pain), Younger Than Stated Age - Head Exam Head Exam: ATRAUMATIC, NORMAL INSPECTION, NORMOCEPHALIC - Eye Exam Eye Exam: EOMI, Normal appearance. absent: Periorbital tenderness Pupil Exam: PERRL - ENT Exam ENT Exam: Mucous Membranes Moist - Neck Exam Neck exam: Positive for: Normal Inspection - Respiratory Exam Respiratory Exam: NORMAL BREATHING PATTERN - Cardiovascular Exam Cardiovascular Exam: REGULAR RHYTHM - GI/Abdominal Exam GI & Abdominal Exam: Guarding (voluntary), Hernia (r inguinal hernia, non- reducible, incarcerated), Normal Bowel Sounds, Soft, Tenderness. absent: Distended, Firm, Rebound, Rigid - Exam Exam: NORMAL INSPECTION, Scrotal Swelling, Testicular Tenderness - Extremities Exam Extremities exam: Positive for: normal capillary refill, pedal pulses present. Negative for: calf tenderness - Back Exam Back exam: absent: CVA tenderness (L), CVA tenderness (R) - Neurological Exam Neurological exam: Alert, Oriented x3 - Psychiatric Exam Psychiatric exam: Normal Affect, Normal Mood - Skin Skin Exam: Dry, Intact, Normal Color, Warm Results - Vital Signs Recent Vital Signs: Last Vital Signs Temp 99.1 F 12/22/17 12:16 Pulse 78 12/22/17 12:16 Resp 18 12/22/17 12:16 BP 134/85 12/22/17 12:16 Pulse Ox 98 12/22/17 12:16 - Labs Result Diagrams: 12/22/17 12:50 12/22/17 12:50 Labs: Laboratory Results - last 24 hr 12/22/17 12/22/17 12/22/17 12:50 12:50 12:50 WBC 7.7 RBC 4.96 Hgb 15.1 Hct 43.5 MCV 87.7 MCH 30.4 MCHC 34.7 RDW 12.7 Plt Count 212 MPV 10.9 Gran % 51.0 Lymph % (Auto) 39.3 H [place] % (Auto) 5.5 Eos % (Auto) 3.4 Baso % (Auto) 0.8 Gran # 3.92 Lymph # (Auto) 3.0 [place] # (Auto) 0.4 Eos # (Auto) 0.3 Baso # (Auto) 0.06 PT 11.0 INR 0.97 APTT 26.2 pO2 VBG pH VBG pCO2 VBG HCO3 VBG Total CO2 VBG O2 Sat (Calc) VBG Base Excess VBG Potassium Glucose Lactate FiO2 Sodium 142 Potassium 4.3 Chloride 107 Carbon Dioxide 25 Anion Gap 14 BUN 15 Creatinine 1.0 Est GFR ( Amer) > 60 Est GFR (Non-Af Amer) > 60 Random Glucose 93 Calcium 9.0 Total Bilirubin 0.6 AST 29 ALT 28 Alkaline Phosphatase 70 Total Protein 7.9 Albumin 4.5 Globulin 3.4 Albumin/Globulin Ratio 1.3 Venous Blood Potassium BBK History Checked 12/22/17 12/22/17 12:53 13:15 WBC RBC Hgb Hct MCV MCH MCHC RDW Plt Count MPV Gran % Lymph % (Auto) [place] % (Auto) Eos % (Auto) Baso % (Auto) Gran # Lymph # (Auto) [place] # (Auto) Eos # (Auto) Baso # (Auto) PT INR APTT pO2 139 H VBG pH 7.42 VBG pCO2 43.0 VBG HCO3 27.9 VBG Total CO2 29.2 H VBG O2 Sat (Calc) 99.3 H VBG Base Excess 2.9 H VBG Potassium 4.2 Glucose 90 Lactate 1.4 FiO2 21.0 Sodium 141.0 Potassium Chloride 106.0 Carbon Dioxide Anion Gap BUN Creatinine Est GFR ( Amer) Est GFR (Non-Af Amer) Random Glucose Calcium Total Bilirubin AST ALT Alkaline Phosphatase Total Protein Albumin Globulin Albumin/Globulin Ratio Venous Blood Potassium 4.2 BBK History Checked Patient has bt Assessment & Plan - Assessment and Plan (Free Text) Assessment: 32 M presents with incarcerated right inguinal hernia Plan: -NPO -IV fluids -Analgesics/Anti-emetics PRN -Plan for Right inguinal hernia repair in OR today at 1530 -Discussed with Dr. Albin Ortiz PGY1 - Date & Time Date: 12/22/17 Time: 13:00
[2017-12-22] MEDS ORDERED: Liquid Adhesive TOP ONE (15:21)
[2017-12-22] MEDS: Lactated Ringer's 1,000 ML IV SCH ×2 (15:25→21:53)
[2017-12-22] MEDS ORDERED: Midazolam 2 MG/2 ML VIAL ONE (15:54)
[2017-12-22] MEDS ORDERED: Propofol 10 mg/ml Inj (20 ML) ONE (15:54)
[2017-12-22] MEDS ORDERED: Succinylcholine 200 mg/10 ml Inj IV ONE (15:54)
[2017-12-22] MEDS: Bupivacaine 0.5% Inj(30mL) ONE ×2 (16:23→17:04)
[2017-12-22] MEDS ORDERED: Bupivacaine 0.5% Inj(30mL) ONE (16:59)
--- NOTE | 2017-12-22 17:43 | PCM.SURG1 ---
Surgeon's Initial Post Op Note - Surgeon's Notes Surgeon: Dr. Talamantes Accounting Professor: Penny LOVETTY2, Cody BUNDY Type of Anesthesia: General Endo, Block Regional, Local Anesthesia Administered By: Dr. Choudhary Pre-Operative Diagnosis: Right inguinal hernia Operative Findings: Right indirect inguinal hernia Post-Operative Diagnosis: Right indirect inguinal hernia Operation Performed: Repair of Right indirect inguinal hernia with mesh Specimen/Specimens Removed: N/A Estimated Blood Loss: EBL {In ML}: 10 Blood Products Given: N/A Drains Used: No Drains Post-Op Condition: Good Date of Surgery/Procedure: 12/22/17 Time of Surgery/Procedure: 17:42
[2017-12-22] MEDS ORDERED: Lactated Ringer's 1,000 ML IV SCH (18:00)
[2017-12-22 22:30] VITALS: RESP 20
[2017-12-23 07:24] VITALS: BP 123/78; PULSE 55; TEMP 98.6; O2SAT 98
--- NOTE | 2017-12-23 10:24 | CP.PCM.DIS ---
Provider - Provider Date of Admission: 12/22/2017 Attending physician: Dave Talamantes MD Time Spent in preparation of Discharge (in minutes): 10 Hospital Course - Lab Results Lab Results: Most Recent Lab Values WBC 7.7 10^3/ul (4.5-11.0) 12/22/17 12:50 RBC 4.96 10^6/uL (3.5-6.1) 12/22/17 12:50 Hgb 15.1 g/dL (14.0-18.0) 12/22/17 12:50 Hct 43.5 % (42.0-52.0) 12/22/17 12:50 MCV 87.7 fl (80.0-105.0) 12/22/17 12:50 MCH 30.4 pg (25.0-35.0) 12/22/17 12:50 MCHC 34.7 g/dl (31.0-37.0) 12/22/17 12:50 RDW 12.7 % (11.5-14.5) 12/22/17 12:50 Plt Count 212 10^3/uL (120.0-450.0) 12/22/17 12:50 MPV 10.9 fl (7.0-11.0) 12/22/17 12:50 Gran % 51.0 % (50.0-68.0) 12/22/17 12:50 Lymph % (Auto) 39.3 % (22.0-35.0) H 12/22/17 12:50 [place] % (Auto) 5.5 % (1.0-6.0) 12/22/17 12:50 Eos % (Auto) 3.4 % (1.5-5.0) 12/22/17 12:50 Baso % (Auto) 0.8 % (0.0-3.0) 12/22/17 12:50 Gran # 3.92 (1.4-6.5) 12/22/17 12:50 Lymph # (Auto) 3.0 (1.2-3.4) 12/22/17 12:50 [place] # (Auto) 0.4 (0.1-0.6) 12/22/17 12:50 Eos # (Auto) 0.3 (0.0-0.7) 12/22/17 12:50 Baso # (Auto) 0.06 K/mm3 (0.0-2.0) 12/22/17 12:50 PT 11.0 SECONDS (9.4-12.5) 12/22/17 12:50 INR 0.97 12/22/17 12:50 APTT 26.2 Seconds (25.1-36.5) 12/22/17 12:50 pO2 139 mm/Hg (30-55) H 12/22/17 12:53 VBG pH 7.42 (7.32-7.43) 12/22/17 12:53 VBG pCO2 43.0 (40-60) 12/22/17 12:53 VBG HCO3 27.9 mmol/l (21-28) 12/22/17 12:53 VBG Total CO2 29.2 mmol.L (22-28) H 12/22/17 12:53 VBG O2 Sat (Calc) 99.3 % (40-65) H 12/22/17 12:53 VBG Base Excess 2.9 mmol/L (0.0-2.0) H 12/22/17 12:53 VBG Potassium 4.2 mmol/L (3.6-5.2) 12/22/17 12:53 Sodium 141.0 mmol/L (132-148) 12/22/17 12:53 Chloride 106.0 mmol/L (98-107) 12/22/17 12:53 Glucose 90 mg/dl (75-110) 12/22/17 12:53 Lactate 1.4 mmol/L (0.7-2.1) 12/22/17 12:53 FiO2 21.0 % 12/22/17 12:53 Sodium 142 mmol/L (132-148) 12/22/17 12:50 Potassium 4.3 mmol/L (3.6-5.0) 12/22/17 12:50 Chloride 107 mmol/L (98-107) 12/22/17 12:50 Carbon Dioxide 25 mmol/L (21-33) 12/22/17 12:50 Anion Gap 14 (10-20) 12/22/17 12:50 BUN 15 mg/dL (7-21) 12/22/17 12:50 Creatinine 1.0 mg/dl (0.8-1.5) 12/22/17 12:50 Est GFR ( Amer) > 60 12/22/17 12:50 Est GFR (Non-Af Amer) > 60 12/22/17 12:50 POC Glucose (mg/dL) 81 mg/dL (65-110) 12/22/17 15:25 Random Glucose 93 mg/dL (70-110) 12/22/17 12:50 Calcium 9.0 mg/dL (8.4-10.5) 12/22/17 12:50 Total Bilirubin 0.6 mg/dL (0.2-1.3) 12/22/17 12:50 AST 29 U/L (17-59) 12/22/17 12:50 ALT 28 U/L (7-56) 12/22/17 12:50 Alkaline Phosphatase 70 U/L (38-126) 12/22/17 12:50 Total Protein 7.9 g/dL (5.8-8.3) 12/22/17 12:50 Albumin 4.5 g/dL (3.0-4.8) 12/22/17 12:50 Globulin 3.4 gm/dL 12/22/17 12:50 Albumin/Globulin Ratio 1.3 (1.1-1.8) 12/22/17 12:50 Venous Blood Potassium 4.2 mmol/L (3.6-5.2) 12/22/17 12:53 Blood Type A POSITIVE 12/22/17 13:15 Antibody Screen Negative 12/22/17 13:15 BBK History Checked Patient has bt 12/22/17 13:15 - Hospital Course Hospital Course: Mr. Teresa is a 32 year old male with a past medical history of asthma who returned to [facility] on 12/22/17 for a complaint of right inguinal hernia. He stated that he has had this hernia since June. He was seen and evaluated in the ED. The day prior, he came to the ED for right inguinal hernia as well. CT abdomen/pelvis was performed at that time and was unremarkable. Subsequently, the hernia was reduced and the patient was sent home with follow up instructions and pain medications. On the day of admission, he was at [facility] lifting groceries when the pain and size of hernia increased. He noticed that the hernia was non-reducible and decided to return to ED. He rated the pain as severe and described it as constant and sharp, located in right groin without radiation. The hernia was non-reducible in the ED and the pain persisted. He was taken to the OR for a right inguinal hernia repair with mesh, which was completed with no complications. Patient was discharged home with follow up to Dr. Talamantes within 1-2 weeks. - Date & Time of H&P Date of H&P: 12/22/17 Time of H&P: 14:17 Discharge Exam - Head Exam Head Exam: ATRAUMATIC, NORMAL INSPECTION, NORMOCEPHALIC - Eye Exam Eye Exam: Normal appearance - Neck Exam Neck exam: Normal Inspection - Respiratory Exam Respiratory Exam: NORMAL BREATHING PATTERN - Cardiovascular Exam Cardiovascular Exam: RRR, +S1, +S2 - GI/Abdominal Exam GI & Abdominal Exam: Normal Bowel Sounds, Soft. absent: Distended, Firm, Guarding, Mass, Rebound, Rigid, Tenderness Additional comments: Dermabond along R inguinal incision. No erythema noted, no discharge. - Exam Exam: NORMAL INSPECTION - Extremities Exam Extremities exam: normal inspection - Neurological Exam Neurological exam: Alert, Normal Gait, Oriented x3 - Psychiatric Exam Psychiatric exam: Normal Affect, Normal Mood - Skin Skin Exam: Dry, Intact, Normal Color Discharge Plan - Discharge Medications Prescriptions: Ketorolac Tromethamine [Toradol] 10 mg PO Q6 PRN #20 tab PRN Reason: Pain, Mild (1-3) - Follow Up Plan Condition: GOOD Disposition: HOME/ ROUTINE Instructions: How to Use an Incentive Spirometer, Open Herniorrhaphy (DC), Inguinal Hernia (DC) Additional Instructions: Ok to shower tomorrow. Avoid heavy lifting greater than 20 lbs for 4-6 weeks. Can likely return to work Thursday, on light duty for 6-8 weeks. Referrals: Dave Talamantes MD [Staff Provider] -
--- NOTE | 2017-12-23 15:56 | OP ---
Copied To: Dave Talamantes MD Attending MD: Dave Talamantes MD PROCEDURE DATE: 12/22/2017 SURGEON: Dave Talamantes MD. CIRCUS ROUSTABOUT: Dennis Francis DO. ANESTHESIA: General. ANESTHESIA ADMINISTERED BY: Jordan Choudhary MD. PREOPERATIVE DIAGNOSIS: Incarcerated right inguinal hernia. POSTOPERATIVE DIAGNOSIS: Incarcerated right inguinal hernia. PROCEDURE: Right inguinal hernia repair with mesh. DESCRIPTION OF OPERATION: With the patient in the supine position under adequate general anesthesia, the right groin was prepped and draped in the usual sterile manner. The patient was noted to have a bulge at the level of the right pubis, which reduced after the patient was anesthetized. The right groin was prepped and draped in usual sterile manner. A transverse incision was made in the right upper groin crease, taken down through the subcutaneous tissue. The external oblique layer was identified. The aponeurosis was incised from the external inguinal ring to the internal inguinal ring. The spermatic cord which was thickened was dissected as it passed over the pubic tubercle and elevated over a Jacqueline drain. The inguinal floor was examined. There was no direct herniation noted. The dissection of the spermatic cord revealed a relatively thin walled hernia sac, which was opened, noted to contain some fluid. There was no significant bowel identified within the sac and palpation within the peritoneal cavity did not reveal any adhesions adjacent to the area of the sac. The sac was divided and suture ligated with a 0 Vicryl suture. The internal inguinal ring was noted to be mildly enlarged and a PerFix mesh plug was positioned beneath the spermatic cord well up beneath the transversalis level and sutured beneath the transversalis with two interrupted sutures of 2-0 Prolene. The flat portion of the PerFix mesh hernia system was then trimmed to duplicate the inguinal floor and a suture was placed at the pubic tubercle encompassing the shelving edge of the inguinal ligament and the medial edge of the transversalis fascia and this suture was used to position the medial edge of the mesh. The mesh was positioned beneath the spermatic cord and the previously placed sutures at the internal inguinal ring were then tied to position the mesh in this area. Additional sutures were taken laterally to the internal ring to approximate the ends of the mesh to the transversalis fascia and additional sutures of 2-0 Prolene were then used to fix the mesh superiorly to the transversalis fascia and inferiorly to the shelving edge of the inguinal ligament. When this had been completed, the external oblique was reapproximated over the spermatic cord with 2-0 Vicryl running suture. Subcutaneous tissues were approximated with a few 3-0 Vicryl interrupted sutures and closure was performed with running subcuticular suture of 4-0 Monocryl and Steri-Strips. Dry sterile dressing was applied. The patient tolerated the procedure well and transferred to recovery room in stable condition. Estimated blood loss for the procedure was 10 mL. Dave Talamantes MD
== END 2017-12-23 11:18 | disposition home or self-care (01) ==
LOC: ED 11:54 → SDS 19:26 → 5RSO 19:27 → SDS 12-23 11:18
PROVIDERS: ATTEND Specialist
DX: K40.30 Unilateral inguinal hernia, with obstruction, without gangrene, not specified as recurrent (principal); J45.909 Unspecified asthma, uncomplicated; F17.210 Nicotine dependence, cigarettes, uncomplicated; Z90.49 Acquired absence of other specified parts of digestive tract; Z91.013 Allergy to seafood
CPT/HCPCS: 49507; 80053; 82803; 82948; 85025; 85610; 85730; 86850; 86900; J0330; J0690; J1885; J2250; J2405; J2704; J3010; J7120

== ENCOUNTER 2017-12-29 17:15 | Emergency (ER) | payer OTHER ==
[2017-12-29 17:16] VITALS: BMI 25.8
[2017-12-29 17:28] VITALS: RESP 18
--- NOTE | 2017-12-29 17:45 | ED PDOC ---
"Arrival/HPI - General Chief Complaint: Male Genitourinary Time Seen by Provider: 12/29/17 17:32 Historian: Patient - History of Present Illness Narrative History of Present Illness (Text): 12/29/17 17:39 32 y/o male, pmh including asthma, surgical history including rt. inguinal hernia surgery repair with mesh about 1 week ago, nkda, c/o rt. inguinal surgical site pain with nausea/vomiting for the past 2 days. Pt. stated that he has been having rt. inguinal surgical site pain with swelling for the past 2 days, associated with vomiting and feeling and nauseous due tgo the pain, no night sweat, no palpitation, no night sweat, no change in vision, no rash, no fever or chills, no other medical or psychological complaints. Past Medical History - Provider Review Nursing Documentation Reviewed: Yes - Infectious Disease Hx of Infectious Diseases: None - Tetanus Immunization Tetanus Immunization: Unknown - Cardiac Hx Cardiac Disorders: No Hx Pacemaker: No - Pulmonary Hx Respiratory Disorders: Yes Hx Asthma: Yes - Neurological Hx Neurological Disorder: No - HEENT Hx HEENT Disorder: No - Renal Hx Renal Disorder: No - Endocrine/Metabolic Hx Endocrine Disorders: No - Hematological/Oncological Hx Blood Disorders: No - Integumentary Hx Dermatological Disorder: No - Musculoskeletal/Rheumatological Hx Musculoskeletal Disorders: No Hx Falls: No - Gastrointestinal Hx Gastrointestinal Disorders: No - Genitourinary/Gynecological Hx Genitourinary Disorders: No - Psychiatric Hx Emotional Abuse: No Hx Physical Abuse: No Hx Substance Use: Yes - Past Surgical History Past Surgical History: No Previous - Surgical History Hx Appendectomy: Yes - Anesthesia Hx Anesthesia Reactions: No - Suicidal Assessment Feels Threatened In Home Enviroment: No Family/Social History - Physician Review Nursing Documentation Reviewed: Yes Family/Social History: Unknown Family HX Smoking Status: Light Smoker < 10 Cigarettes Daily Hx Alcohol Use: No Hx Substance Use: Yes Hx Substance Use Treatment: No Allergies/Home Meds Allergies/Adverse Reactions: Allergies shellfish derived Allergy (Verified 12/22/17 12:26) RASH Review of Systems - Review of Systems Constitutional: absent: Fatigue, Fevers Eyes: absent: Vision Changes ENT: absent: Hearing Changes Respiratory: absent: SOB, Cough Cardiovascular: absent: Chest Pain Gastrointestinal: Abdominal Pain, Nausea, Vomiting. absent: Diarrhea Musculoskeletal: absent: Arthralgias, Back Pain Skin: absent: Rash, Pruritis Neurological: absent: Headache, Dizziness Psychiatric: absent: Anxiety, Depression Physical Exam Vital Signs Reviewed: Yes Vital Signs Temp Pulse Resp BP Pulse Ox 12/29/17 22:11 98.2 F 69 18 133/95 H 97 12/29/17 22:10 98.2 F 69 18 133/95 H 97 12/29/17 17:46 98.4 F 12/29/17 17:25 100.5 F H 73 18 146/80 99 Blood Pressure: Normal Pulse: Regular Respiratory Rate: Normal Appearance: Positive for: Well-Appearing, Non-Toxic, Comfortable Pain Distress: Moderate Mental Status: Positive for: Alert and Oriented X 3 - Systems Exam Head: Present: Atraumatic, Normocephalic Pupils: Present: PERRL Extroacular Muscles: Present: EOMI Conjunctiva: Present: Normal Mouth: Present: Moist Mucous Membranes Neck: Present: Normal Range of Motion, Trachea Midline. No: Meningeal Signs, MIDLINE TENDERNESS, Paraspinal Tenderness, Lymphadenopathy Respiratory/Chest: Present: Clear to Auscultation, Good Air Exchange. No: Respiratory Distress, Accessory Muscle Use, Wheezes Cardiovascular: Present: Regular Rate and Rhythm, Normal S1, S2. No: Murmurs Abdomen: Present: Tenderness (+ttp and mild swelling noted on the rt. inguinal surgical incision region approx. the scar is 8cm noted. ). No: Distention, Peritoneal Signs, Rebound, Guarding Back: Present: Normal Inspection Upper Extremity: Present: Normal Inspection. No: Cyanosis, Edema Lower Extremity: Present: Normal Inspection. No: Edema Neurological: Present: GCS=15, CN II-XII Intact, Speech Normal Skin: Present: Warm, Dry, Normal Color. No: Rashes Psychiatric: Present: Alert, Oriented x 3, Normal Insight, Normal Concentration Medical Decision Making ED Course and Treatment: 12/29/17 17:53 Differential: Abscess vs. Seroma vs. Colitis vs. UTI vs. Pneumonia vs. UTI -Labs/vbg/ua -CT abdomen and pelvis/chest xray -IVF/toradol -Observe and reassess 12/29/17 21:01 -CT abdomen and pelvis show IMPRESSION When compared with 12/21/17, there is increasing fluid and inflammatory change along the right inguinal ligament.Clinical correlation is advised. If there is desire for further evaluation, a scrotal ultrasound could be performed. -CT abdomen and pelvis doesn't show any abscess or free gas air. -Chest xray show no active disease -Labs are non-significant except potassium 3.5 (potassium chloride 20meq po ordered) -Lactic acid within normal limit -UA show no UTI -Paging instructor adjunct surgical technician. 12/29/17 21:06 -I spoke to the surgical team, resident, Dr. Andrew Espino., discussed about the labs/ radiology result, will come to evaluate the patient and discussed with Dr. Vick Talamantes. 12/29/17 21:57 -Testicular sonogram show: 1. Hydroceles are present bilaterally. 2. Right Varicocele present. 3. Right epididymal head cyst measures 1.1 x 0.6 x 0.8 cm. -Pt. has no pain now, no nausea or vomiting, eating and drinking well. -Dr. Andrew Espino, evaluated the patient, reviewed the labs/radiology and sonogram result, called and spoke to his attending Dr. Talamantes, stated that this is normal response and the patient can be discharged home with follow up this week thursday01/01/2018, pt. verbally expressed understanding and agreed to be discharged home plan. -Discharge home with motrin, pepcid, zofran, avoid straining, follow up with your own pmd within [address] Talamantes on this upcoming Thursday01/01/2018 for follow up, return to the ER for any new or worsening signs or symptoms. - Lab Interpretations Lab Results: 12/29/17 18:35 12/29/17 18:35 Lab Results 12/29/17 18:35: pO2 96 H, VBG pH 7.38, VBG pCO2 60.0, VBG HCO3 35.5 H, VBG Total CO2 37.3 H, VBG O2 Sat (Calc) 98.7 H, VBG Base Excess 8.2 H, VBG Potassium 3.4 L, Sodium 138.0, Chloride 102.0, Glucose 100, Lactate 1.1, FiO2 21.0, Venous Blood Potassium 3.4 L 12/29/17 18:35: Sodium 143, Chloride 97 L, Potassium 3.5 L, Carbon Dioxide 36 H , Anion Gap 13, BUN 17, Creatinine 1.0, Est GFR ( Amer) > 60, Est GFR ( Non-Af Amer) > 60, Random Glucose 102, Calcium 8.6, Magnesium 2.1, Total Bilirubin 0.3, AST 26, ALT 30, Alkaline Phosphatase 66, Total Protein 7.2, Albumin 4.1, Globulin 3.2, Albumin/Globulin Ratio 1.3 12/29/17 18:35: WBC 7.6, RBC 4.73, Hgb 14.1, Hct 41.7 L, MCV 88.2, MCH 29.8, MCHC 33.8, RDW 12.4, Plt Count 236, MPV 10.1, Gran % 42.1 L, Lymph % (Auto) 43.6 H, [place] % (Auto) 9.4 H, Eos % (Auto) 4.2, Baso % (Auto) 0.7, Gran # 3.21, Lymph # (Auto) 3.3, [place] # (Auto) 0.7 H, Eos # (Auto) 0.3, Baso # (Auto) 0.05 I have reviewed the lab results: Yes - RAD Interpretation Radiology Orders: 12/29/17 17:47 CHEST PORTABLE [RAD] Stat 12/29/17 17:48 ABDOMEN & PELVIS [ABD & PELVIS IV CONTRAST ONLY] [CT] Stat 12/29/17 20:56 TESTES DUPLEX COMPLETE [US] Stat Chest xray: CT abdomen and pelvis: Lower thorax: No acute findings. ABDOMEN: Liver: Normal. No mass. Gallbladder and bile ducts: Normal. No calcified stones. No ductal dilation. Pancreas: Normal. No ductal dilation. Spleen: Normal. No splenomegaly. Adrenals: Normal. No mass. Kidneys and ureters: Normal. No hydronephrosis. REINIER BACA | Preliminary Radiology Report TREE TOPPER (QA) DISCREPANCY? If there is a discrepancy between the preliminary and final interpretation, please notify [facility] via [email or web address] If you do not have access to our QA portal, call our QA team at [phone] CONFIDENTIALITY STATEMENT This report is intended only for the use of the referring physician, and only in accordance with law, If you received this in error, call [phone] Page 2 of 2 Stomach and bowel: Normal. No obstruction. No mucosal thickening. Appendix: There has been an appendectomy. PELVIS: Bladder: Unremarkable as visualized. Reproductive: Unremarkable as visualized. ABDOMEN and PELVIS: Intraperitoneal space: Normal. No free air. No significant fluid collection. Bones/joints: No acute fracture. No dislocation. Soft tissues: There is increasing fluid and inflammatory change along the right inguinal ligament. There is no soft tissue gas. There is a rounded fluid collection measuring 2.3 cm just anterior to the right external iliac artery and vein. Vasculature: There is no abdominal aortic aneurysm. Lymph nodes: Normal. No enlarged lymph nodes. IMPRESSION: When compared with 12/21/17, there is increasing fluid and inflammatory change along the right inguinal ligament.Clinical correlation is advised. If there is desire for further evaluation, a scrotal ultrasound could be performed. Thank you for allowing us to participate in the care of your patient. Dictated and Authenticated by: Peterson Platt MD 12/29/2017 8:35 PM Eastern Time ([place] & [place]) Testicular sonogram: FINDINGS: Right testicle: Right testicle measures 3.7 x 2.2 x 3 cm. No torsion. Left testicle: Left testicle measures 4.36 x 2.8 x 3.2 cm. No torsion. Epididymides: Right epididymal head cyst measures 1.1 x 0.6 x 0.8 cm. Right epididymis head measures 1 x 0.4 x 0.45 cm. Left epididymal head measures 1 x 0.7 x 1 cm. Scrotum: Hydroceles are present bilaterally. Right Varicocele present. No fluid collections otherwise noted. IMPRESSION: 1. Hydroceles are present bilaterally. 2. Right Varicocele present. 3. Right epididymal head cyst measures 1.1 x 0.6 x 0.8 cm. Thank you for allowing us to participate in the care of your patient. Dictated and Authenticated by: Mandy Vila MD 12/29/2017 9:43 PM Eastern Time ([place] & [place]) Weaving Machine Operator: Radiologist - Medication Orders Current Medication Orders: Discontinued Medications Sodium Chloride (Sodium Chloride 0.9%) 1,000 mls @ 999 mls/hr IV .Q1H1M STA Stop: 12/29/17 18:49 Last Admin: 12/29/17 18:41 Dose: 999 mls/hr eMAR Start Stop Document 12/29/17 18:41 EQ (Rec: 12/29/17 18:42 EQ [id number]) Intravenous Solution Start Date 12/29/17 Start Time 18:41 Ketorolac Tromethamine (Toradol) 30 mg IVP STAT STA Stop: 12/29/17 17:50 Last Admin: 12/29/17 18:42 Dose: 30 mg MAR Pain Assessment Document 12/29/17 18:42 EQ (Rec: 12/29/17 18:42 EQ [id number]) Pain Reassessment Is this a pain reassessment? No Sleep Is patient sleeping during reassessment? No Presence of Pain Presence of Pain Yes IVP Administration Document 12/29/17 18:42 EQ (Rec: 12/29/17 18:42 EQ [id number]) Charges for Administration # of IVP Administrations 1 Potassium Chloride (K-Dur 20 Meq Er Tab) 20 meq PO STAT STA Stop: 12/29/17 19:09 Last Admin: 12/29/17 19:26 Dose: 20 meq - PA / ENVIRONMENTAL TEST TECHNICIAN / Resident Statement /DO has reviewed & agrees with the documentation as recorded. Disposition/Present on Arrival - Present on Arrival Any Indicators Present on Arrival: No History of DVT/PE: No History of Uncontrolled Diabetes: No Urinary Catheter: No History of Decub. Ulcer: No History Surgical Site Infection Following: None - Disposition Have Diagnosis and Disposition been Completed?: Yes Diagnosis: Right inguinal hernia, Encounter for wound re-check, Hydrocele, Varicocele Disposition: HOME/ ROUTINE Disposition Time: 22:00 Patient Plan: Discharge Condition: IMPROVED Additional Instructions: -Discharge home with motrin, pepcid, zofran, avoid straining, follow up with your own pmd/urologist within [address] Talamantes on this upcoming Thursday for follow up, return to the ER for any new or worsening signs or symptoms. Prescriptions: Famotidine [Pepcid] 20 mg PO BID PRN #14 tab PRN Reason: Other Ibuprofen [Motrin Tab] 600 mg PO QID PRN #30 tab PRN Reason: Other Ondansetron [Zofran] 4 mg PO Q8H PRN #12 tab PRN Reason: Other Referrals: [facility] [Outside] - Follow up with primary Dave Talamantes MD [Staff Provider] - Follow up with primary Ryder Schultz MD [Staff Provider] - Follow up with primary Forms: [employer] (Spanish), WORK NOTE"
[2017-12-29] MEDS ORDERED: Sodium Chloride 0.9% 1,000 ML IV STA (17:49)
[2017-12-29 18:47] LABS: VENOUS BLOOD GAS BASE EXCESS 8.2 mmol/L (0.0-2.0); VENOUS BLOOD GAS PO2 96 mm/Hg (30-55); VENOUS BLOOD PH 7.38 (7.32-7.43)
[2017-12-29 18:49] LABS: BASO # 0.05 K/mm3 (0.0-2.0); BASO % 0.7 % (0.0-3.0); EOS # 0.3 (0.0-0.7); EOS % 4.2 % (1.5-5.0); GRAN # 3.21 (1.4-6.5); GRAN % 42.1 % (50.0-68.0); HEMOGLOBIN 14.1 g/dL (14.0-18.0); LYMPH # 3.3 (1.2-3.4); LYMPH % 43.6 % (22.0-35.0); MEAN CELL VOLUME 88.2 fl (80.0-105.0); MEAN CORPUSCULAR HEMOGLOBIN 29.8 pg (25.0-35.0); MEAN CORPUSCULAR HGB CONC 33.8 g/dl (31.0-37.0); MEAN PLATELET VOLUME 10.1 fl (7.0-11.0); MONO # 0.7 (0.1-0.6); MONO % 9.4 % (1.0-6.0); RBC 4.73 10^6/uL (3.5-6.1); RED CELL DISTRIBUTION WIDTH 12.4 % (11.5-14.5); WHITE BLOOD COUNT 7.6 10^3/ul (4.5-11.0)
[2017-12-29 19:06] LABS: ALB/GLOB RATIO 1.3 (1.1-1.8); ALBUMIN 4.1 g/dL (3.0-4.8); ALT/SGPT 30 U/L (7-56); AST/SGOT 26 U/L (17-59); BLOOD UREA NITROGEN 17 mg/dL (7-21); CALCIUM 8.6 mg/dL (8.4-10.5); GFR AFRICAN-AMERICAN > 60; GFR NON-AFRICAN AMERICAN > 60
[2017-12-29] MEDS ORDERED: Potassium Chloride 20 mEq ER Tab PO STA (19:08)
[2017-12-29] MEDS ORDERED: Iohexol 350 MG/100 ML VIAL ONE (19:20)
[2017-12-29 22:11] VITALS: BP 133/95; PULSE 69; TEMP 98.2; O2SAT 97
--- NOTE | 2017-12-30 09:51 | CT ---
Date of service: 12/29/2017 PROCEDURE: CT Abdomen and Pelvis with contrast HISTORY: rt. inguinal hernia site swelling/pain/vomiting COMPARISON: None. TECHNIQUE: Contrast dose: 100 cc of Omni 350 Radiation dose: Total exam DLP = 290 mGy-cm. This CT exam was performed using one or more of the following dose reduction techniques: Automated exposure control, adjustment of the mA and/or kV according to patient size, and/or use of iterative reconstruction technique. FINDINGS: LOWER THORAX: Unremarkable. LIVER: Unremarkable. No gross lesion or ductal dilatation. GALLBLADDER AND BILE DUCTS: Unremarkable. PANCREAS: Unremarkable. No gross lesion or ductal dilatation. SPLEEN: Unremarkable. ADRENALS: Unremarkable. No mass. KIDNEYS AND URETERS: Unremarkable. No hydronephrosis. No solid mass. VASCULATURE: Unremarkable. No aortic aneurysm. BOWEL: Unremarkable. No obstruction. No gross mural thickening. APPENDIX: Normal appendix. PERITONEUM: Unremarkable. No free fluid. No free air. LYMPH NODES: Unremarkable. No enlarged lymph nodes. BLADDER: Unremarkable. REPRODUCTIVE: There is increased swelling and edema along the right inguinal ligament which measures up to 2.3 cm in diameter. The etiology is uncertain. Ultrasound evaluation may be indicated. Bilateral hydroceles are seen A small droplet of air can be seen on coronal image 22 series 601 BONES: No acute fracture. OTHER FINDINGS: The report concurs with the preliminary [facility] report IMPRESSION: There is increased swelling and edema along the right inguinal ligament which measures up to 2.3 cm in diameter. The etiology is uncertain. Infection is suspected. There is a small droplet of air in this area. Ultrasound evaluation may be indicated. Bilateral hydroceles are seen
--- NOTE | 2017-12-30 10:45 | US ---
Date of service: 12/29/2017 HISTORY: fluid, rt. scrotum? TECHNIQUE: Realtime sonography through the scrotum with color and doppler flow. COMPARISON: None Available. FINDINGS: RIGHT TESTICLE: Measures 2.2 x 3.1 x 3.8 cm. Normal echotexture and flow. RIGHT EPIDIDYMIS: Epididymal head measures 0.4 x 1.1. Cm. Simple cyst right epididymis 6 x 11 mm. LEFT TESTICLE: Measures 2.8 x 3.2 x 4.4 cm. Normal echotexture and flow. LEFT EPIDIDYMIS: Epididymal head measures 1.0 x 0.8 cm. Grossly unremarkable appearance with normal flow. HYDROCELE: Small bilaterally symmetrical hydroceles. VARICOCELE: Small right varicocele. OTHER FINDINGS: None. IMPRESSION: No acute findings related to/accounting for the clinical presentation. Additional benign and/or incidental findings described above. Concordant results (preliminary interpretation) provided by [facility]. Procedure Completed: 21:26 Preliminary ([facility]) Report: Dictated and Authenticated: 21:43. Final Interpretation: 10:42.
--- NOTE | 2017-12-30 10:55 | RAD ---
Date of service: 12/29/2017 HISTORY: medical clearance COMPARISON: 07/05/2016. FINDINGS: LUNGS: No active pulmonary disease. PLEURA: No significant pleural effusion identified, no pneumothorax apparent. CARDIOVASCULAR: Normal. OSSEOUS STRUCTURES: No significant abnormalities. VISUALIZED UPPER ABDOMEN: Normal. OTHER FINDINGS: None. IMPRESSION: No active disease. No significant interval change compared to the prior examination(s). Concordant results with the preliminary interpretation rendered by the emergency department physician procedure.
== END 2017-12-29 22:11 | disposition home or self-care (01) ==
LOC: ED 17:15
DX: Z48.89 Encounter for other specified surgical aftercare (principal); K40.90 Unilateral inguinal hernia, without obstruction or gangrene, not specified as recurrent; N43.3 Hydrocele, unspecified; I86.1 Scrotal varices
CPT/HCPCS: 71045; 74177; 80053; 82803; 83735; 85025; 93975; 96374; 99283; J1885; J7030; Q9967

== ENCOUNTER 2018-01-01 20:00 | Emergency (ER) | payer OTHER ==
[2018-01-01 20:01] VITALS: BMI 25.8
[2018-01-01 20:15] VITALS: RESP 18; TEMP 98.5
--- NOTE | 2018-01-01 20:35 | ED PDOC ---
Arrival/HPI - General Chief Complaint: Abdominal Pain Time Seen by Provider: 01/01/18 20:15 Historian: Patient - History of Present Illness Narrative History of Present Illness (Text): 01/01/18 20:30 32yo male s/p hernia repair with mesh on 12/22/2017 present to Emergency department complaining of hardness and pain to the surgical site. He was seen here on the for same complaint, states he tried to call the Surgeon as he was directed, but no one picked up the phone. He however denies fever, chills, nausea, vomiting, diarrhea, any other complaint. Past Medical History - Provider Review Nursing Documentation Reviewed: Yes - Infectious Disease Hx of Infectious Diseases: None - Tetanus Immunization Tetanus Immunization: Unknown - Cardiac Hx Cardiac Disorders: No Hx Pacemaker: No - Pulmonary Hx Respiratory Disorders: Yes Hx Asthma: Yes - Neurological Hx Neurological Disorder: No - HEENT Hx HEENT Disorder: No - Renal Hx Renal Disorder: No - Endocrine/Metabolic Hx Endocrine Disorders: No - Hematological/Oncological Hx Blood Disorders: No - Integumentary Hx Dermatological Disorder: No - Musculoskeletal/Rheumatological Hx Musculoskeletal Disorders: No Hx Falls: No - Gastrointestinal Hx Gastrointestinal Disorders: No - Genitourinary/Gynecological Hx Genitourinary Disorders: No - Psychiatric Hx Emotional Abuse: No Hx Physical Abuse: No Hx Substance Use: Yes - Past Surgical History Past Surgical History: No Previous - Surgical History Hx Appendectomy: Yes - Anesthesia Hx Anesthesia: Yes Hx Anesthesia Reactions: No Hx Malignant Hyperthermia: No - Suicidal Assessment Feels Threatened In Home Enviroment: No Family/Social History - Physician Review Nursing Documentation Reviewed: Yes Family/Social History: Unknown Family HX Smoking Status: Light Smoker < 10 Cigarettes Daily Hx Alcohol Use: No Hx Substance Use: Yes Hx Substance Use Treatment: No Allergies/Home Meds Allergies/Adverse Reactions: Allergies shellfish derived Allergy (Verified 12/22/17 12:26) RASH Review of Systems - Physician Review All systems were reviewed & negative as marked: Yes - Review of Systems Constitutional: Normal Eyes: Normal ENT: Normal Respiratory: Normal Cardiovascular: Normal Gastrointestinal: Abdominal Pain (Surgical site pain). absent: Constipation, Diarrhea, Nausea, Vomiting Genitourinary Male: Normal Musculoskeletal: Normal Skin: Normal Neurological: Normal Endocrine: Normal Hemo/Lymphatic: Normal Psychiatric: Normal Physical Exam Vital Signs Reviewed: Yes Vital Signs Temp Pulse Resp BP Pulse Ox 01/01/18 20:52 85 18 134/72 99 01/01/18 20:14 98.5 F 92 H 18 136/86 96 Temperature: Afebrile Blood Pressure: Normal Pulse: Regular Respiratory Rate: Normal Appearance: Positive for: Well-Appearing, Non-Toxic, Comfortable Pain Distress: None Mental Status: Positive for: Alert and Oriented X 3 - Systems Exam Head: Present: Atraumatic, Normocephalic Pupils: Present: PERRL Extroacular Muscles: Present: EOMI Conjunctiva: Present: Normal Mouth: Present: Moist Mucous Membranes Neck: Present: Normal Range of Motion Respiratory/Chest: Present: Clear to Auscultation, Good Air Exchange. No: Respiratory Distress, Accessory Muscle Use Cardiovascular: Present: Regular Rate and Rhythm, Normal S1, S2. No: Murmurs Abdomen: Present: Tenderness (Around the surgical site), Normal Bowel Sounds, Guarding (Voluntary), Other (soft. Healing surgical incision noted. No sign of infection). No: Distention, Peritoneal Signs, Rebound Back: Present: Normal Inspection Upper Extremity: Present: Normal Inspection. No: Cyanosis, Edema Lower Extremity: Present: Normal Inspection. No: Edema Neurological: Present: GCS=15, CN II-XII Intact, Speech Normal Skin: Present: Warm, Dry, Normal Color. No: Rashes Psychiatric: Present: Alert, Oriented x 3, Normal Insight, Normal Concentration Medical Decision Making ED Course and Treatment: 01/02/18 00:40 PT presented for stated history. No sign of infection was noted. Pt was hemodynamically stable and in no distress in Emergency department. Case was seen in Emergency department by global supply chain vice president. She advised pt to apply ice to the area and follow up with Dr. Talamantes on Thursday. She notes that surgical wound is healing well. PT expressed understanding of the given instructions. He was DC home with Ice pack. Disposition/Present on Arrival - Present on Arrival Any Indicators Present on Arrival: No History of DVT/PE: No History of Uncontrolled Diabetes: No Urinary Catheter: No History of Decub. Ulcer: No History Surgical Site Infection Following: None - Disposition Have Diagnosis and Disposition been Completed?: Yes Diagnosis: Pain at surgical site Disposition: HOME/ ROUTINE Disposition Time: 20:45 Patient Plan: Discharge Condition: STABLE Discharge Instructions (ExitCare): Postoperative Pain (DC), Managing Pain After Surgery Additional Instructions: Apply ice to area Follow up with the Surgeon, Dr. Talamantes Return to Emergency department for any new or worsening symptoms Referrals: Dave Talamantes MD [Staff Provider] - Follow up with primary Forms: [employer] (Ind[place]ian), WORK NOTE
[2018-01-01 21:06] VITALS: BP 134/72; PULSE 85; O2SAT 99
== END 2018-01-01 20:52 | disposition home or self-care (01) ==
LOC: ED 20:00
DX: G89.18 Other acute postprocedural pain (principal); F17.210 Nicotine dependence, cigarettes, uncomplicated

== ENCOUNTER 2018-01-26 18:41 | Emergency (ER) | payer OTHER ==
[2018-01-26 18:41] VITALS: BMI 25.8
[2018-01-26 19:09] VITALS: BP 134/86; RESP 18; TEMP 97.6
[2018-01-26] MEDS ORDERED: Sodium Chloride 0.9% 1,000 ML IV STA (19:13)
--- NOTE | 2018-01-26 20:07 | ED PDOC ---
Arrival/HPI - General Chief Complaint: GI Problem Time Seen by Provider: 01/26/18 19:07 Historian: Patient - History of Present Illness Narrative History of Present Illness (Text): 32yo male, currently status post right inguinal hernia repair, done [address] Talamantes. Patient states today, while wiping after a bowel movement, he noted blood. He states the stool was normal and brown in color. He also reports associated 1 episode of vomiting. Otherwise, denies any fever, abdominal pain, other abdominal surgeries or diarrhea. No other complaints. Symptom Onset: Gradual Past Medical History - Provider Review Nursing Documentation Reviewed: Yes - Infectious Disease Hx of Infectious Diseases: None - Tetanus Immunization Tetanus Immunization: Unknown - Cardiac Hx Cardiac Disorders: No - Pulmonary Hx Respiratory Disorders: Yes Hx Asthma: Yes - Neurological Hx Neurological Disorder: No - HEENT Hx HEENT Disorder: No - Renal Hx Renal Disorder: No - Endocrine/Metabolic Hx Endocrine Disorders: No - Hematological/Oncological Hx Blood Disorders: No - Integumentary Hx Dermatological Disorder: No - Musculoskeletal/Rheumatological Hx Musculoskeletal Disorders: No - Gastrointestinal Hx Gastrointestinal Disorders: Yes - Genitourinary/Gynecological Hx Genitourinary Disorders: No - Psychiatric Hx Psychophysiologic Disorder: No Hx Substance Use: Yes - Past Surgical History Past Surgical History: No Previous - Surgical History Hx Appendectomy: Yes - Anesthesia Hx Anesthesia: Yes Hx Anesthesia Reactions: No Hx Malignant Hyperthermia: No - Suicidal Assessment Feels Threatened In Home Enviroment: No Family/Social History - Physician Review Nursing Documentation Reviewed: Yes Family/Social History: No Known Family HX Smoking Status: Light Smoker < 10 Cigarettes Daily Hx Alcohol Use: No Hx Substance Use: Yes Hx Substance Use Treatment: No Allergies/Home Meds Allergies/Adverse Reactions: Allergies shellfish derived Allergy (Verified 01/26/18 18:54) RASH Home Medications: Home Meds Medication Instructions Recorded Confirmed No Known Home Med 01/26/18 01/26/18 Review of Systems - Physician Review All systems were reviewed & negative as marked: Yes - Review of Systems Gastrointestinal: Other (blood per rectum). absent: Diarrhea, Nausea, Vomiting Physical Exam Vital Signs Temp Pulse Resp BP Pulse Ox 01/26/18 18:52 97.6 F 97 H 18 134/86 96 Temperature: Afebrile Blood Pressure: Normal Pulse: Regular Respiratory Rate: Normal Appearance: Positive for: Well-Appearing, Non-Toxic, Comfortable Pain Distress: None Mental Status: Positive for: Alert and Oriented X 3 - Systems Exam Head: Present: Atraumatic, Normocephalic Pupils: Present: PERRL Extroacular Muscles: Present: EOMI Conjunctiva: Present: Normal Mouth: Present: Moist Mucous Membranes Neck: Present: Normal Range of Motion Respiratory/Chest: Present: Clear to Auscultation, Good Air Exchange. No: Respiratory Distress, Accessory Muscle Use Cardiovascular: Present: Regular Rate and Rhythm, Normal S1, S2. No: Murmurs Abdomen: Present: Scars (+healed R inguinal hernia repair ). 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 No: Occult Blood Back: Present: Normal Inspection Upper Extremity: Present: Normal Inspection. No: Cyanosis, Edema Lower Extremity: Present: Normal Inspection. No: Edema Neurological: Present: GCS=15, CN II-XII Intact, Speech Normal Skin: Present: Warm, Dry, Normal Color. No: Rashes Psychiatric: Present: Alert, Oriented x 3, Normal Insight, Normal Concentration Medical Decision Making ED Course and Treatment: Impression: 32yo male, recently s/p abdominal surgery, comes in complaining of blood per rectum Plan: -- Labs -- Urinalysis -- IV Fluids -- Reassess and disposition Progress Notes: Labs reviewed : hgb 14. On reevaluation, patient denies any nausea, vomiting, abdominal pain or any further episodes of rectal bleeding in the ER. On exam, patient remains awake alert and oriented 3 in no acute distress. Abdomen remains soft and nontender, repeat neuro exam shows no focal findings. Based on history, exam and diagnostic results plan will be for outpatient follow up. Advised to follow up with primary care physician in 1-2 days without fail. Return to the emergency room at any time for any new or worsening symptoms. Patient states he fully agrees with and understands discharge instructions. States that he agrees with the plan and disposition. Verbalized and repeated discharge instructions and plan. I have given the patient opportunity to ask any additional questions. - Lab Interpretations Lab Results: 01/26/18 19:55 01/26/18 19:55 Lab Results 01/26/18 19:55: Sodium 140, Potassium 3.8, Chloride 102, Carbon Dioxide 29, Anion Gap 13, BUN 9, Creatinine 1.2, Est GFR ( Amer) > 60, Est GFR (Non- Af Amer) > 60, Random Glucose 96, Calcium 9.0, Total Bilirubin 0.5, AST 24, ALT 24, Alkaline Phosphatase 86, Total Protein 8.0, Albumin 4.5, Globulin 3.5, Albumin/Globulin Ratio 1.3, Lipase 33 01/26/18 19:55: PT 12.0, INR 1.05, APTT 28.3 01/26/18 19:55: WBC 12.3 H D, RBC 4.93, Hgb 14.4, Hct 42.8, MCV 86.8, MCH 29.2, MCHC 33.6, RDW 12.8, Plt Count 248, MPV 10.7, Gran % 57.7, Lymph % (Auto) 33.0, Jay % (Auto) 7.4 H, Eos % (Auto) 1.5, Baso % (Auto) 0.4, Gran # 7.12 H, Lymph # (Auto) 4.1 H, Jay # (Auto) 0.9 H, Eos # (Auto) 0.2, Baso # (Auto) 0.05 - Medication Orders Current Medication Orders: Discontinued Medications Sodium Chloride (Sodium Chloride 0.9%) 1,000 mls @ 1,000 mls/hr IV .Q1H STA Stop: 01/26/18 20:12 Last Admin: 01/26/18 19:59 Dose: 1,000 mls/hr eMAR Start Stop Document 01/26/18 19:59 SS (Rec: 01/26/18 19:59 SS [id number]) Intravenous Solution Start Date 01/26/18 Start Time 19:59 End Date 01/26/18 End time 20:59 Total Infusion Time 60 - PA / [employer]PER[employer]OR [employer] / Resident Statement MD/ has reviewed & agrees with the documentation as recorded. - Scribe Statement The provider has reviewed the documentation as recorded by the Lam Reagan Provider [place] Attestation: All medical record entries made by the Lam were at my direction and personally dictated by me. I have reviewed the chart and agree that the record accurately reflects my personal performance of the history, physical exam, medical decision making, and the department course for this patient. I have also personally directed, reviewed, and agree with the discharge instructions and disposition. Disposition/Present on Arrival - Present on Arrival Any Indicators Present on Arrival: No History of DVT/PE: No History of Uncontrolled Diabetes: No Urinary Catheter: No History of Decub. Ulcer: No History Surgical Site Infection Following: None - Disposition Have Diagnosis and Disposition been Completed?: Yes Diagnosis: Rectal bleeding Disposition Time: 22:00 Patient Plan: Discharge Patient Problems: Current Active Problems Problem Status Onset Rectal bleeding Acute Condition: STABLE Discharge Instructions (ExitCare): Bloody Stools, Adult (DC) Additional Instructions: Thank you for letting us take care of you today. You were treated for rectal bleeding. The emergency medical care you received today was directed at your acute symptoms. Return to the Emergency Department if your symptoms worsen, do not improve, or if you have any other problems. Please contact your doctor in 2 days for re-evaluation and follow up / or call one of the physicians/clinics you have been referred to that are listed on the Patient Visit Information form that is included in your discharge packet. Bring any paperwork you were given at discharge with you along with any medications you are taking to your follow up visit. Our treatment cannot replace ongoing medical care by a primary care provider (PCP) outside of the emergency department. Thank you for allowing the [facility] team to be part of your care today. Referrals: Dave Talamantes MD [Primary Care Provider] - Follow up with primary Forms: [employer] (Korean), WORK NOTE
[2018-01-26 20:09] LABS: BASO # 0.05 K/mm3 (0.0-2.0); BASO % 0.4 % (0.0-3.0); EOS # 0.2 (0.0-0.7); EOS % 1.5 % (1.5-5.0); GRAN # 7.12 (1.4-6.5); GRAN % 57.7 % (50.0-68.0); HEMOGLOBIN 14.4 g/dL (14.0-18.0); LYMPH # 4.1 (1.2-3.4); MEAN CELL VOLUME 86.8 fl (80.0-105.0); MEAN CORPUSCULAR HEMOGLOBIN 29.2 pg (25.0-35.0); MEAN CORPUSCULAR HGB CONC 33.6 g/dl (31.0-37.0); MEAN PLATELET VOLUME 10.7 fl (7.0-11.0); MONO # 0.9 (0.1-0.6); MONO % 7.4 % (1.0-6.0); RBC 4.93 10^6/uL (3.5-6.1); RED CELL DISTRIBUTION WIDTH 12.8 % (11.5-14.5); WHITE BLOOD COUNT 12.3 10^3/ul (4.5-11.0)
[2018-01-26 20:18] LABS: INR 1.05; PARTIAL THROMBOPLASTIN TIME 28.3 Seconds (25.1-36.5)
[2018-01-26 20:24] LABS: ALB/GLOB RATIO 1.3 (1.1-1.8); ALBUMIN 4.5 g/dL (3.0-4.8); ALT/SGPT 24 U/L (7-56); AST/SGOT 24 U/L (17-59); BLOOD UREA NITROGEN 9 mg/dL (7-21); GFR NON-AFRICAN AMERICAN > 60; LIPASE 33 U/L (23-300)
[2018-01-26 22:37] VITALS: PULSE 80; O2SAT 98
== END 2018-01-26 22:35 | disposition home or self-care (01) ==
LOC: ED 18:41
DX: K62.5 Hemorrhage of anus and rectum (principal); F17.210 Nicotine dependence, cigarettes, uncomplicated
CPT/HCPCS: 80053; 83690; 85025; 85610; 85730; 96360; 99283; J7030